=== PATIENT | female | born 1980 | race Caucasian/White ===

== ENCOUNTER 2020-11-16 08:55 | Outpatient (CLI) | payer OTHER | END 2020-11-16 09:07 | disposition home or self-care (01) | LOC: SONOGRAMA 08:55 → RX STUDY 08:55 → SONOGRAMA 09:07 → RX STUDY 11:00 | PROVIDERS: ATTEND Obstetrics & Gynecology | DX: N84.0 Polyp of corpus uteri (principal) ==